=== PATIENT | male | born 1980 ===

== ENCOUNTER → 2017-02-09 | Outpatient (CLI) | payer OTHER ==
[~2017-02-09] MED LIST: GLUCOPHAGE500 MG PO; LISINOPRIL20 MG PO; PRAVACHOL PO
== END | disposition home or self-care (01) ==
LOC: CBAR 14:17
DX: Z01.818 Encounter for other preprocedural examination (principal); E66.01 Morbid (severe) obesity due to excess calories
CPT/HCPCS: 36415; 84443; 86677; G0463

== ENCOUNTER → 2017-02-16 | Outpatient (CLI) | payer OTHER ==
--- NOTE | ~2017-02-16 | CR97 ---
[facility] A Service of [facility] RADIOLOGY TEXT RESULTS PATIENT: CARI RIBERA LOCATION: [facility] : [birth year] UNIT #: [id number] AGE: [address]: Raman Nunes III, MD SEX: M ORDER DR: [id number] [address] [address] [id number] O MR#: [id number] Acc #: [id number] NAME: CARI RIBERA : 1980 SEX: M STUDY DATE/TIME: 02/16/2017 9:00 UNIT: [facility] ROOM: STUDY DESCRIPTION: CR Esophagram Attending Physician: Raman Nunes III, M.D. Referring Physician: Raman Nunes III, M.D. Ordering Physician: Raman Nunes III, M.D. Primary Care Physician: Tremayne Garsia M.D. MEDICAL IMAGING REPORT This report is preliminary unless electronic signature is present EXAM Single contrast barium esophagram. INDICATION This is a preoperative examination prior to laparoscopic gastric banding procedure. Patient is a diabetic and has been a smoker for 17 years. PROCEDURE Patient was administered thin barium and multiple fluoroscopic images were obtained. FINDINGS Patient's thoracic esophagus is of normal caliber. The patient does have an esophageal diverticulum which is seen arising from the mid to lower esophagus. Exact etiology is uncertain. Potentially, it could reflect a traction diverticulum related to granulomatous disease. CT could allow for some additional characterization. No stricture is identified. Esophageal motility appeared within normal limits. No hiatal hernia was seen and there is no reflux. Total fluoroscopy time 0.4 minutes and a total of 17 fluoroscopic images were obtained. IMPRESSION 1. No hiatal hernia identified. 2. Patient does have a small esophageal diverticulum arising from the mid to lower esophagus. Exact etiology is uncertain. Potentially it could reflect a traction diverticulum related to granulomatous disease. CT potentially could be considered for additional evaluation. Dictated by... [facility] A [facility] RADIOLOGY TEXT RESULTS PATIENT: CARI RIBERA LOCATION: [facility] : 80 UNIT #: [id number] AGE: [address]: Raman Nunes III, MD SEX: M ORDER DR: iNa Knott M.D. THIS IS AN ELECTRONICALLY VERIFIED REPORT Nia Knott M.D. at 02/19/2017 5:21 PM AFF/tmw TD: 02/19/2017 16:42 JOB #: [id number] MEDICAL IMAGING REPORT Page 1 of 1 COPY
--- NOTE | ~2017-02-16 | CR63 ---
[facility] A Service of [facility] RADIOLOGY TEXT RESULTS PATIENT: CARI RIBERA LOCATION: [facility] : 80 UNIT #: [id number] AGE: [address]: Raman Nunes III, MD SEX: M ORDER DR: [id number] [facility] [address] [place], [place] [address] [id number] O MR#: [id number] Acc #: [id number] NAME: CARI RIBERA : 1980 SEX: M STUDY DATE/TIME: 02/16/2017 8:41 UNIT: [facility] ROOM: STUDY DESCRIPTION: CR Chest 2 View Attending Physician: Raman Nunes III, M.D. Referring Physician: Raman Nunes III, M.D. Ordering Physician: Raman Nunes III, M.D. Primary Care Physician: Tremayne Garsia M.D. MEDICAL IMAGING REPORT This report is preliminary unless electronic signature is present EXAM Two-view chest 02/16/2017 HISTORY 36-year-old male patient, preop clearance for laparoscopic adjustable gastric band placement and possible paraesophageal hernia repair. Morbid obesity. COMPARISON STUDIES Comparison none FINDINGS PA and lateral chest views show normal cardiac size and configuration. Hilar structures and mediastinal contours are preserved. Bilateral lungs are clear. Morbid obesity noted. IMPRESSION Negative chest. Dictated by... Shayne Barba M.D. THIS IS AN ELECTRONICALLY VERIFIED REPORT Shayne Barba M.D. at 02/16/2017 3:51 PM Rachel TD: 02/16/2017 15:08 JOB #: [id number] MEDICAL IMAGING REPORT Page 1 of 1 COPY
--- NOTE | ~2017-02-16 | EKG ---
PATIENT: CARI RIBERA UNIT #: [id number] Ventricular Rate: 52 BPM Atrial Rate: 52 BPM P-R Interval: 138 ms QRS Duration: 84 ms Q-T Interval: 448 ms QTC Calculation(Bezet): 416 ms P [place]: 7 degrees Calculated R [place]: 12 degrees Calculated T [place]: 9 degrees Diagnosis Line: Sinus bradycardia Diagnosis Line: Otherwise normal ECG Diagnosis Line: No previous ECGs available Diagnosis Line: Confirmed by JUJU PRICE MD ([id number]) on 02/21/2017 Diagnosis Line: 2:32:27 PM INTERPRETING MD: DEE MACIEL
[2017-02-16 10:06] LABS: HEMATOCRIT 44.1 % (38.0-50.0); MEAN CELL VOLUME 84.2 FL (83-96); MEAN CORPUSCULAR HEMOGLOBIN 26.7 PG (28-34); MEAN CORPUSCULAR HGB CONC 31.7 g/dL (30-36); MEAN PLATELET VOLUME 9.8 FL (6.5-11.5); RED BLOOD COUNT 5.24 X10e (3.90-5.60); RED CELL DISTRIBUTION WIDTH 14.3 % (11.0-15.5); WHITE BLOOD COUNT 7.3 X10e3 (4.0-10.5)
[2017-02-16 10:11] LABS: ALBUMIN SERUM 3.9 g/dL (3.5-5.0); BILIRUBIN,TOTAL 0.4 mg/dL (0.2-2.0); BUN/CREATININE RATIO 15.55; CALCIUM SERUM 8.9 mg/dL (8.4-10.2); CREATININE SERUM 0.9 mg/dL (0.6-1.4); GLOM FILT RATE Estimated 109.5 mL/min (>60); POTASSIUM 4.1 mmol/L (3.5-5.1); PROTEIN TOTAL SERUM 7.1 g/dL (6.0-8.3)
== END | disposition home or self-care (01) ==
LOC: CRAD 08:18 → CAMB 10:00
PROVIDERS: Surgery
DX: Z01.818 Encounter for other preprocedural examination (principal); E66.01 Morbid (severe) obesity due to excess calories; K22.5 Diverticulum of esophagus, acquired
CPT/HCPCS: 36415; 71020; 74220; 80053; 80061; 84443; 85027; 93005

== ENCOUNTER → 2017-03-14 | Day surgery (SDC) | payer OTHER ==
--- NOTE | ~2017-03-14 | OR ---
Unit #: [id number] #: [id number] Patient: CARI RIBERA [id number] [facility] [address] [place], [place] [address] [id number] O MR#: [id number] NAME: CARI RIBERA ROOM: Date of Procedure: 03/14/2017 Admission Date: 03/14/2017 Surgeon: Raman Nunes III, M.D. : 1980 Attending Physician: Raman Nunes III, M.D. Primary Care Physician: Tremayne Garsia M.D. OPERATIVE REPORT PREOPERATIVE DIAGNOSIS Chronic morbid obesity. POSTOPERATIVE DIAGNOSES 1. Chronic morbid obesity. 2. Diabetes and sleep apnea. PROCEDURE PERFORMED Laparoscopic adjustable gastric banding (AP large with low-profile port) and laparoscopic paraesophageal hernia repair. ASSISTANT PASSENGER LOCOMOTIVE ENGINEER Dr. Pro Ersnt. SPECIMENS None. COMPLICATIONS None apparent. ESTIMATED BLOOD LOSS Minimal. ANESTHESIA General endotracheal tube anesthesia. INDICATIONS FOR PROCEDURE This is a 36-year-old gentleman, who has chronic morbid obesity with a BMI of 41 and associated comorbidities of diabetes and sleep apnea. He has been through the bariatric program at [facility] and understands risks and benefits of the procedure. DESCRIPTION OF PROCEDURE After consent was obtained, including the risks and benefits of slippage, erosion, port dysfunction, and possible failure of weight loss due to noncompliance, the patient was taken to the operating room and placed in the supine position. General anesthetic was administered and the abdomen was prepped and draped in standard surgical fashion. I began by making a 2 cm incision just above and to the left of the umbilicus. I used a Visiport to enter the peritoneal cavity without any difficulty. C02 pneumoperitoneum was then established. Next, I placed a Unit #: [id number] #: [id number] Patient: CARI RIBERA 5 mm port in the right upper quadrant, a 5 mm Zuhair liver retractor in the subxiphoid region to provide exposure of the gastroesophageal junction. Next, a 10 mm port was placed in the left upper quadrant and a 5 mm port was placed in the left lateral subcostal region. I began by performing an examination of the GE junction to evaluate for a hiatal hernia. We then scored the peritoneal attachments overlying the angle of His. I then opened up the clear space in the gastrohepatic ligament, and then using 2 blunt graspers, I identified the small fat pad crossing over the right crura. I swept the fat anterior to the crura off the crura and using the pars flaccida, I created a retrogastric tunnel where the blunt grasper exited at the angle of His. Once I had made this tunnel safely, I then inserted an Allergan AP band into the abdominal cavity. This adjustable gastric band was then place around the upper part of the stomach and fastened and buckled anteriorly. We then tacked the lateral fundus over the band to the proximal pouch with 2 interrupted 0 Ethibond sutures. I then used a third stitch to imbricate the excess anterior stomach by going from the lesser curvature up towards where the last stitch was placed. We then had excellent hemostasis. I removed the Zuhair liver retractor. We then removed the port tubing through the initial port incision. The rest of the ports were removed, and the pneumoperitoneum was released. I then left a small tail on the tubing. We then attached the port to the excess band tubing. We placed a piece of Prolene mesh along the back side of the port and used a Prolene stitch to anchor this mesh in place. We then trimmed the excess mesh so that just a small footprint of mesh was in place behind the port. I then inserted the tubing back into the abdominal cavity, and we placed the port into a small pocket that was made just inferior to where our initial port incision was made. The mesh was in direct contact with the fascia, and this will scar in place to hold the port in place. We then injected all the port sites with 0.25% plain Marcaine, and I reapproximated the skin edges with interrupted 4-0 Vicryl subcuticular sutures. Steri-strips were then applied. The patient tolerated the procedure without any problems and returned to the recovery room in stable condition. ADDENDUM After exposure of the GE junction, the patient was noted to have a small to medium sized anterior paraesophageal hernia. I scored the phrenoesophageal ligament, reduced the hernia defect and after identifying both the right crura, I reapproximated the defect with an interrupted 0 Ethibond [id number] suture. It should be noted the hernia sac was removed as well. I then proceed with the case as listed above. Dictated by... Raman Nunes III, M.D. VCL/juana TD: 03/14/2017 19:19 JOB #: [id number] Unit #: [id number] #: [id number] Patient: CARI RIBERA OPERATIVE REPORT Page 1 of 1 X Raman Nunes III, MD PROCEDURE OPERATIVE NOTE
--- NOTE | ~2017-03-14 | CR7 ---
[facility] A Service of [facility] RADIOLOGY TEXT RESULTS PATIENT: CARI RIBERA [id number] [birth year] UNIT #: [id number] AGE: [address]: Raman Nunes III, MD SEX: M ORDER DR: [id number] [id number] [facility]. [place], [place] [address] [id number] O MR#: [id number] Acc #: [id number] NAME: CARI RIBERA : 1980 SEX: M STUDY DATE/TIME: 03/14/2017 10:34 UNIT: [facility] ROOM: STUDY DESCRIPTION: CR Abdomen Single AP View Attending Physician: Raman Nunes III, M.D. Ordering Physician: Raman Nunes III, M.D. Primary Care Physician: Tremayne Garsia M.D. MEDICAL IMAGING REPORT This report is preliminary unless electronic signature is present EXAM Abdomen one-view 03/14/2017 1034 hours HISTORY 36-year-old with morbid obesity, postop Lap-Band placement today. COMPARISON Preop esophagram 02/16/2017 FINDINGS Single supine view is submitted. The right flank and pelvis are excluded from the film. There is a Lap-Band present overlying the left T10 costovertebral junction oriented at 48 degrees from vertical. Radiopaque tubing courses inferiorly to a port overlying the left L5 transverse process. The bowel gas pattern is unremarkable. IMPRESSION New Lap-Band overlies the left T10 costovertebral articulation oriented at 48 degrees from vertical. Radiopaque tubing courses inferiorly to a port projecting over the left aspect of L5. Dictated by... Romsery Sanchez M.D. THIS IS AN ELECTRONICALLY VERIFIED REPORT Rosmery Sanchez M.D. at 03/14/2017 2:32 PM WILMAN/riya TD: 03/14/2017 12:50 [facility] A Service of [facility] RADIOLOGY TEXT RESULTS PATIENT: CARI RIBERA LOCATION: [facility] #: [id number] : [birth year] UNIT #: [id number] AGE: [address]: Raman Nunes III, MD SEX: M ORDER DR: JOB #: [id number] MEDICAL IMAGING REPORT Page 1 of 1 COPY
== END | disposition home or self-care (01) ==
LOC: CSUR 02-28 09:00
DX: E66.01 Morbid (severe) obesity due to excess calories (principal); K44.9 Diaphragmatic hernia without obstruction or gangrene; E11.9 Type 2 diabetes mellitus without complications; K21.9 Gastro-esophageal reflux disease without esophagitis; G47.30 Sleep apnea, unspecified; Z68.41 Body mass index [BMI] 40.0-44.9, adult; Z79.84 Long term (current) use of oral hypoglycemic drugs; Z79.899 Other long term (current) drug therapy
CPT/HCPCS: 74000; 82947; C1781; J0330; J0690; J1100; J1650; J1885; J2250; J2405; J2710; J3010